=== PATIENT | female | born 1970 | race African-American/Black ===

== ENCOUNTER 2017-07-23 18:42 | Emergency (ER) | payer MEDICAID ==
[~2017-07-23] VITALS: Ht 160 cm; Wt 60.0 kg
[2017-07-23 18:47] VITALS: BP 140/97
== END 2017-07-23 19:35 | disposition left against medical advice (07) ==
LOC: ER 18:54
DX: Z53.21 Procedure and treatment not carried out due to patient leaving prior to being seen by health care provider (principal)

== ENCOUNTER 2018-01-14 13:14 | Emergency (ER) | payer MEDICAID, MEDICARE ==
[~2018-01-14] VITALS: Ht 157.5 cm; Wt 77.0 kg
[2018-01-14 13:17] VITALS: BP 105/62
== END 2018-01-14 18:43 | disposition left against medical advice (07) ==
LOC: ER 14:09
DX: R10.9 Unspecified abdominal pain (principal); Z53.21 Procedure and treatment not carried out due to patient leaving prior to being seen by health care provider